=== PATIENT | male | born 1935 | race Caucasian/White ===

== ENCOUNTER → 2018-12-24 | Outpatient (CLI) | payer MEDICARE | END | disposition home or self-care (01) | LOC: LABWHC1 10:16 | PROVIDERS: ATTEND Urology | DX: N40.1 Benign prostatic hyperplasia with lower urinary tract symptoms (principal) | CPT/HCPCS: 36415; 84153 ==

== ENCOUNTER 2020-01-31 11:57 | Emergency (ER) | payer MEDICARE ==
[2020-01-31 12:11] VITALS: RESP 18; TEMP 97.9
[2020-01-31 13:19] LABS: Basophils % (A) 0 %; Eosinophils # (A) 0.2 k/uL (0-0.7); Eosinophils % (A) 5 %; HCT 32.8 % (39.0-53.0); HGB 11.2 gm/dL (13.0-17.5); Lymphocytes # (A) 0.7 k/uL (1.0-4.8); Lymphocytes % (A) 14 %; MCH 33.6 pg (25.0-35.0); MCHC 34.3 g/dL (31.0-37.0); MCV 98.2 fL (80.0-100.0); Mean Platelet Volume 6.8; Monocytes # (A) 0.4 k/uL (0-1.0); Monocytes % (A) 8 %; Neutrophils # (A) 3.4 k/uL (1.3-7.7); Neutrophils % (A) 71 %; Platelet Count 139 k/uL (150-450); RBC 3.34 m/uL (4.30-5.90); RDW 13.3 % (11.5-15.5); WBC 4.8 k/uL (3.8-10.6)
[2020-01-31 13:29] LABS: Calcium 9.6 mg/dL (8.4-10.2); Potassium 4.7 mmol/L (3.5-5.1); Total Bilirubin 0.5 mg/dL (0.2-1.3); Total Protein 6.9 g/dL (6.3-8.2)
[2020-01-31 13:44] LABS: D-Dimer 0.58 mg/L FEU (<0.60)
[2020-01-31 13:48] LABS: Partial Thromboplastin Time 20.5 sec (22.0-30.0)
--- NOTE | 2020-01-31 14:16 | CT ---
EXAMINATION TYPE: CT chest angio for PE DATE OF EXAM: 01/31/2020 COMPARISON: NONE HISTORY: SOB, Post Radiation. History of prostate cancer. CT DLP: 562.8 mGycm. Automated Exposure Control for Dose Reduction was Utilized. CONTRAST: CTA scan of the thorax is performed without and with IV Contrast, patient injected with 100 ml mL of Isovue 370, pulmonary embolism protocol. MIP Images are created on CT scanner and reviewed. FINDINGS: LUNGS: Some dependent and linear atelectasis in the bilateral lower lobes. No suspicious focal glass opacity or consolidation. Some respiratory motion artifact degradation is present. There is no pleura l effusion or pneumothorax seen bilaterally. The tracheobronchial tree is patent. MEDIASTINUM: There is satisfactory enhancement of the pulmonary artery and its branches, there is no CT evidence for pulmonary embolism. There are no greater than 1 cm hilar or mediastinal lymph nodes. No cardiomegaly or pericardial effusion is seen. Coronary artery calcification is present which is noted marked underlying coronary artery disease. Satisfactory enhancement of the aorta without aneur ysm or dissection. OTHER: Bilateral gynecomastia. Liver low dense focus of the spleen suggesting diffuse fatty infiltrat ion. Partial visualization of suspected thin-walled exophytic cyst posteriorly left kidney axial imag e 157. Suspect 2-3 mm nonobstructing left renal calculus axial image 154. IMPRESSION: No CT evidence for acute pulmonary embolism. No suspicious acute pulmonary process.
[2020-01-31 14:24] VITALS: BP 134/71; PULSE 95
--- NOTE | 2020-01-31 14:41 | ED ---
SOB HPI - General Chief Complaint: Shortness of Breath Stated Complaint: SOB Post radiation Source: patient Mode of arrival: ambulatory Limitations: no limitations - History of Present Illness Initial Comments: Patient is an 84-year-old male with past medical history of hypertension, prostate cancer on radiation presents emergency Department with reported shortness of breath. Patient states it's exertional in nature and has been getting progressively worse. States he gets short of breath and the shower. Denies any lower external swelling. No history of CHF. Denies cough, hemoptysis, fevers or chills. No sick contacts with similar symptoms. Has recently traveled from [place] back to [place]. He does receive his radiation while in [place]. Last treatment was 2 weeks ago. Patient states that he has driven with his urine was placed on Flomax. He had a televisit with his primary care physician who was concerned for new onset CHF or possible urinary retention. He recommended they come into the emergency room for evaluation. Denies ripping or tearing sensation to his back. Denies any unilateral numbness or weakness. Previously had a workup for COPD for which his states was negative. No calf pain or swelling. No other alleviating, precipitating or modifying factors - Related Data Home Medications Medication Instructions Recorded Confirmed Aspirin 81 mg PO DAILY 11/16/13 05/09/14 Omeprazole [PriLOSEC] 20 mg PO AC-BRKFST 11/16/13 05/09/14 diphenhydrAMINE [Benadryl] 501 mg PO HS 11/16/13 05/09/14 Allergies Allergy/AdvReac Type Severity Reaction Status Date / Time No Known Allergies Allergy Verified 05/09/14 11:34 Review of Systems ROS Statement: Those systems with pertinent positive or pertinent negative responses have been documented in the HPI. ROS Other: All systems not noted in ROS Statement are negative. Past Medical History Past Medical History: GERD/Reflux, Hyperlipidemia, Hypertension, Liver Disease, Prostate Disorder, Sleep Apnea/CPAP/BIPAP Additional Past Medical History / Comment(s): Hx. dysphagia Hx. hematuaria, hx bulious eruptions both feet Hx. anemia iron deficiency Hx. ventricular ectopy and left bundle branch block Hx. hepatomegaly and Kidney stones bilat Hx. aortic abd. atherosclerosis , bilateral carotid artery stenosis, Hx left ventricular enlargement Prostate CA with radiation History of Any Multi-Drug Resistant Organisms: None Reported Past Surgical History: Breast Surgery Additional Past Surgical History / Comment(s): Hx. colonoscopy, cystoscopy Past Anesthesia/Blood Transfusion Reactions: No Reported Reaction Past Psychological History: No Psychological Hx Reported Smoking Status: Never smoker Past Alcohol Use History: None Reported Past Drug Use History: None Reported - Past Family History Mother Additional Family Medical History / Comment(s): Hx. mother 60's heart, Dad 70's heart General Exam Limitations: no limitations Course Vital Signs 01/31/20 01/31/20 01/31/20 12:06 14:20 14:22 Temperature 97.9 F Pulse Rate 89 Pulse Rate [ 79 Coffee Brewer ] Respiratory 18 18 Rate Blood Pressure 148/81 Blood Pressure [Sitting] Blood Pressure [Standing] Blood Pressure 156/71 [Supine] O2 Sat by Pulse 98 Oximetry 01/31/20 01/31/20 14:23 14:24 Temperature Pulse Rate Pulse Rate [ 82 95 Coffee Brewer ] Respiratory Rate Blood Pressure Blood Pressure 144/76 [Sitting] Blood Pressure 134/71 [Standing] Blood Pressure [Supine] O2 Sat by Pulse 97 97 Oximetry Medical Decision Making - Medical Decision Making The patient was placed in room 3. A thorough history and physical exam is performed. Orthostatics are performed. Patient is hooked up to continuous pulse ox and cardiac monitoring. 12-lead EKG is completed. EKG is compared to old for which the patient does bring with him and appears similar in morphology. Patient is bladder scan and has 35 mL of urine in his bladder. Laboratory studies were conducted. Patient went for a CT of his chest due to his exertional shortness of breath with recent travel and active cancer. Demonstrates no evidence of pulmonary embolism. I discussed results of the patient. Patient remains saturating 97% on room air without increased work of breathing. I discussed diagnosis, differential and treatment options. At this time the patient feels comfortable going home. Patient is to follow-up with his primary care physician. I do recommend an echo the patient's heart. Return to the emergency room for any new or worsening symptoms. Patient was in agreement with the plan and was discharged home in stable condition - Lab Data Result diagrams: 01/31/20 13:07 01/31/20 13:07 Lab Results 01/31/20 01/31/20 01/31/20 Range/Units 13:07 13:07 13:07 WBC 4.8 (3.8-10.6) k/uL RBC 3.34 L (4.30-5.90) m/uL Hgb 11.2 L (13.0-17.5) gm/dL Hct 32.8 L (39.0-53.0) % MCV 98.2 (80.0-100.0) fL MCH 33.6 (25.0-35.0) pg MCHC 34.3 (31.0-37.0) g/dL RDW 13.3 (11.5-15.5) % Plt Count 139 L (150-450) k/uL Neutrophils % 71 % Lymphocytes % 14 % Monocytes % 8 % Eosinophils % 5 % Basophils % 0 % Neutrophils # 3.4 (1.3-7.7) k/uL Lymphocytes # 0.7 L (1.0-4.8) k/uL Monocytes # 0.4 (0-1.0) k/uL Eosinophils # 0.2 (0-0.7) k/uL Basophils # 0.0 (0-0.2) k/uL PT 10.0 (9.0-12.0) sec INR 1.0 (<1.2) APTT 20.5 L (22.0-30.0) sec D-Dimer 0.58 (<0.60) mg/L FEU Sodium 136 L (137-145) mmol/L Potassium 4.7 (3.5-5.1) mmol/L Chloride 105 (98-107) mmol/L Carbon Dioxide 24 (22-30) mmol/L Anion Gap 7 mmol/L BUN 26 H (9-20) mg/dL Creatinine 1.15 (0.66-1.25) mg/dL Est GFR (CKD-EPI)AfAm 67 (>60 ml/min/1.73 sqM) Est GFR (CKD-EPI)NonAf 58 (>60 ml/min/1.73 sqM) Glucose 115 H (74-99) mg/dL Plasma Lactic Acid Carlos (0.7-2.0) mmol/L Calcium 9.6 (8.4-10.2) mg/dL Total Bilirubin 0.5 (0.2-1.3) mg/dL AST 47 (17-59) U/L ALT 38 (4-49) U/L Alkaline Phosphatase 62 (38-126) U/L Troponin I (0.000-0.034) ng/mL NT-Pro-B Natriuret Pep pg/mL Total Protein 6.9 (6.3-8.2) g/dL Albumin 4.0 (3.5-5.0) g/dL 01/31/20 01/31/20 01/31/20 Range/Units 13:07 13:07 13:07 WBC (3.8-10.6) k/uL RBC (4.30-5.90) m/uL Hgb (13.0-17.5) gm/dL Hct (39.0-53.0) % MCV (80.0-100.0) fL MCH (25.0-35.0) pg MCHC (31.0-37.0) g/dL RDW (11.5-15.5) % Plt Count (150-450) k/uL Neutrophils % % Lymphocytes % % Monocytes % % Eosinophils % % Basophils % % Neutrophils # (1.3-7.7) k/uL Lymphocytes # (1.0-4.8) k/uL Monocytes # (0-1.0) k/uL Eosinophils # (0-0.7) k/uL Basophils # (0-0.2) k/uL PT (9.0-12.0) sec INR (<1.2) APTT (22.0-30.0) sec D-Dimer (<0.60) mg/L FEU Sodium (137-145) mmol/L Potassium (3.5-5.1) mmol/L Chloride (98-107) mmol/L Carbon Dioxide (22-30) mmol/L Anion Gap mmol/L BUN (9-20) mg/dL Creatinine (0.66-1.25) mg/dL Est GFR (CKD-EPI)AfAm (>60 ml/min/1.73 sqM) Est GFR (CKD-EPI)NonAf (>60 ml/min/1.73 sqM) Glucose (74-99) mg/dL Plasma Lactic Acid Carlos 1.3 (0.7-2.0) mmol/L Calcium (8.4-10.2) mg/dL Total Bilirubin (0.2-1.3) mg/dL AST (17-59) U/L ALT (4-49) U/L Alkaline Phosphatase (38-126) U/L Troponin I <0.012 (0.000-0.034) ng/mL NT-Pro-B Natriuret Pep 137 pg/mL Total Protein (6.3-8.2) g/dL Albumin (3.5-5.0) g/dL - EKG Data EKG Comments: EKG demonstrates a sinus rhythm with PACs. Rate of 84. AL interval 196. QRS 156. QTC of 453. Left bundle-branch block present. Negative for Sgarbossa criteria Disposition Clinical Impression: Dyspnea Disposition: HOME SELF-CARE Condition: Stable Instructions (If sedation given, give patient instructions): Shortness of Breath (ED) Additional Instructions: Please follow-up with your primary care doctor. I think the next step is for you to have an echo of your heart. Return to the emergency room for any new or worsening symptoms Use Debrox eardrops for the earwax in your ears. You can pick this up from the pharmacy Is patient prescribed a controlled substance at d/c from ED?: No Referrals: Bandar Vyas MD [Primary Care Provider] - 1-2 days Time of Disposition: 14:40
== END 2020-01-31 14:58 | disposition home or self-care (01) ==
LOC: EC 11:57
DX: R06.02 Shortness of breath (principal); C61 Malignant neoplasm of prostate; K21.9 Gastro-esophageal reflux disease without esophagitis; G47.33 Obstructive sleep apnea (adult) (pediatric); Z99.89 Dependence on other enabling machines and devices; Z92.3 Personal history of irradiation; Z79.899 Other long term (current) drug therapy
CPT/HCPCS: 51798; 36415; 93005; 85379; 83880; 80053; 83605; 84484; 85025; 85610; 85730; 71275; 99285; Q9967

== ENCOUNTER → 2020-02-02 | Outpatient (CLI) | payer MEDICARE | END | disposition home or self-care (01) | LOC: LABWHC1 09:44 | PROVIDERS: ATTEND Urology | DX: N40.1 Benign prostatic hyperplasia with lower urinary tract symptoms (principal) | CPT/HCPCS: 36415; 84153 ==

== ENCOUNTER → 2020-09-17 | Outpatient (CLI) | payer MEDICARE ==
--- NOTE | 2020-09-17 15:07 | MR ---
EXAMINATION TYPE: MR iac wo/w con DATE OF EXAM: 09/17/2020 COMPARISON: NONE HISTORY: Dysequilibrium TECHNIQUE: Multiplanar, multisequence images of the brain and brainstem is performed without and with IV contras t, utilizing 11 mL intravenous Gadavist . Acoustic nerve disorder protocol. FINDINGS: Diffusion weighted images demonstrate no evidence of a recent infarct or other diffusion ab normality. Moderate diffuse ventricular and sulcal prominence. Areas of focal and confluent T2 hyperi ntensity in the deep and periventricular white matter. Midline structures demonstrate normal morphology. The craniocervical junction appears within normal limits. Normal vascular flow voids. The visualized sinuses are clear and the globes are intact. No suspicious fluid signal in the bilateral mastoid air cells. The vestibulocochlear complexes are sy mmetric and felt to within normal limits. No suspicious enhancing cerebellopontine angle mass identif ied bilaterally. IMPRESSION: Moderate generalized cerebral atrophy and chronic small vessel ischemic change. No suspic ious enhancing cerebellopontine angle mass.
== END | disposition home or self-care (01) ==
LOC: RADMRIMAIN 10:47
PROVIDERS: ATTEND Otolaryngology
DX: I67.82 Cerebral ischemia (principal); G31.9 Degenerative disease of nervous system, unspecified
CPT/HCPCS: 70553; A9585